=== PATIENT | male | born 1955 | race African-American/Black ===

== ENCOUNTER 2017-06-22 20:01 | Emergency (ER) | payer OTHER ==
--- NOTE | 2017-06-22 21:16 | EDM.PDOC ---
<Sam Pastor E - Last Filed: 06/22/17 22:15> ED HPI GENERAL MEDICAL PROBLEM - General Chief Complaint: Lower Extremity Injury/Pain Stated Complaint: PT HURT RT LEG Time Seen by Provider: 06/22/17 21:05 Source of Information: Reports: Patient History Limitations: Reports: No Limitations - History of Present Illness INITIAL COMMENTS - FREE TEXT/NARRATIVE: HISTORY AND PHYSICAL: History of present illness: Patient is a 61-year-old male who presents to the emergency room with complaints of right ankle pain and he states that his foot got caught on a pipe and rolled his right ankle resulting in a fall. He states that he tried to get up and was in able to bear weight. Patient is fairly confident that his ankle is broken. He is reluctant to allowing staff to removing his shoe at this time. After reassurance and education he is allowing staff to cut the boot of the affected extremity. Denies hitting his head or any loss of consciousness Does not take any prescribed or [id number] medications Has no previous health problems or surgical history. Last ate and drank at 3 PM this afternoon. Review of systems: As per history of present illness and below otherwise all systems reviewed and negative. Past medical history: As per history of present illness and as reviewed below otherwise noncontributory. Surgical history: As per history of present illness and as reviewed below otherwise noncontributory. Social history: No reported history of drug or alcohol abuse. Family history: As per history of present illness and as reviewed below otherwise noncontributory. Physical exam: Gen.: Nontoxic-appearing [id number]-zsu male. Alert and oriented. HEENT: Atraumatic, normocephalic, pupils reactive, negative for conjunctival pallor or scleral icterus, mucous membranes moist, throat clear, neck supple, nontender, trachea midline. Lungs: Clear to auscultation, breath sounds equal bilaterally, chest nontender. Heart: S1S2, regular, negative for clicks, rubs, or JVD. Abdomen: Soft, nondistended, nontender. Negative for masses or hepatosplenomegaly. Negative for costovertebral tenderness. Pelvis: Stable nontender. Genitourinary: Deferred. Rectal: Deferred. Extremities: Swelling noted to the lateral malleolus of the right ankle, CMS intact, capillary refill less than 3 seconds. Flexion and dorsiflexion intact. Is negative for cords or calf pain. Neurovascular unremarkable. Neuro: Awake, alert, oriented. Cranial nerves II through XII unremarkable. Cerebellum unremarkable. Motor and sensory unremarkable throughout. Exam nonfocal. 2199- Dr. Grayson is here to see the patient for a closed reduction. Dr Godfrey assumed care of this patient at this time. Diagnostics: X-ray Therapeutics: IM morphine Impression: Ankle fracture Plan: [] Definitive disposition and diagnosis as appropriate pending reevaluation and review of above. Right Leg Pain Score (Numeric/FACES): 6 - Related Data Allergies Allergy/AdvReac Type Severity Reaction Status Date / Time No Known Allergies Allergy Verified 06/22/17 20:08 Home Meds: Home Meds . [No Known Home Meds] 06/22/17 [History] Past Medical History - Past Health History Medical/Surgical History: Denies Medical/Surgical History Musculoskeletal History: Reports: None - Past Surgical History Musculoskeletal Surgical History: Reports: Shoulder Surgery Social & Family History - Family History Family Medical History: Noncontributory - Tobacco Use Smoking Status *Q: Never Smoker Second Hand Smoke Exposure: No - Caffeine Use Caffeine Use: Reports: Coffee, Energy Drinks, Soda - Recreational Drug Use Recreational Drug Use: No Course - Vital Signs Last Recorded V/S: Last Vital Signs Temp 37.0 C 06/22/17 20:04 Pulse 78 06/22/17 20:04 Resp 19 06/22/17 20:04 BP 137/80 06/22/17 20:04 Pulse Ox 97 06/22/17 20:04 - Orders/Labs/Meds Orders: Active Orders 24 hr Category Date Time Status Ankle Min 3V Rt [CR] Stat Exams 06/22/17 21:14 Taken Ankle Min 3V Rt [CR] Stat Exams 06/22/17 22:52 Ordered Ankle wo Cont Rt [CT] Stat Exams 06/22/17 22:53 Ordered Lactated Ringers [Ringers, Lactated] 1,000 ml Med 06/22/17 22:30 Active IV ASDIRECTED Medication Orders Lactated Ringer's (Ringers, Lactated) 1,000 mls @ 125 mls/hr IV ASDIRECTED ROSIO Last Admin: 06/22/17 22:23 Dose: 125 mls/hr Meds: Medications Generic Name Dose Route Start Last Admin Trade Name Freq PRN Reason Stop Dose Admin Lactated Ringer's 1,000 mls @ 125 mls/hr 06/22/17 22:30 06/22/17 22:23 Ringers, Lactated IV 125 mls/hr ASDIRECTED ROSIO Administration Discontinued Medications Generic Name Dose Route Start Last Admin Trade Name Anton PRN Reason Stop Dose Admin Bupivacaine HCl Confirm 06/22/17 22:04 06/22/17 22:27 Sensorcaine-Mpf 0.5% Administered 06/22/17 22:05 10 ml Dose Administration 10 ml .ROUTE .STK-MED ONE Fentanyl Confirm 06/22/17 22:18 Sublimaze Administered 06/22/17 22:19 Dose 100 mcg .ROUTE .STK-MED ONE Lidocaine Confirm 06/22/17 22:17 Xylocaine-Mpf 2% Administered 06/22/17 22:18 Dose 5 ml .ROUTE .STK-MED ONE Lidocaine HCl Confirm 06/22/17 22:04 06/22/17 22:27 Xylocaine-Mpf 1% Administered 06/22/17 22:05 5 ml Dose Administration 5 ml .ROUTE .STK-MED ONE Morphine Sulfate 4 mg 06/22/17 21:27 06/22/17 21:45 Morphine IM 06/22/17 21:28 4 mg ONETIME ONE Administration Propofol Confirm 06/22/17 22:18 Diprivan 20 Ml Administered 06/22/17 22:19 Dose 400 mg .ROUTE .STK-MED ONE Departure - Departure Disposition: Home, Self-Care 01 Clinical Impression: Fracture subluxation of ankle joint - Discharge Information Referrals: PCP,None [Primary Care Provider] - Forms: ED Department Discharge Additional Instructions: The following information is given to patients seen in the emergency department who are being discharged to home. This information is to outline your options for follow-up care. We provide all patients seen in our emergency department with a follow-up referral. The need for follow-up, as well as the timing and circumstances, are variable depending upon the specifics of your emergency department visit. If you don't have a primary care physician on staff, we will provide you with a referral. We always advise you to contact your personal physician following an emergency department visit to inform them of the circumstance of the visit and for follow-up with them and/or the need for any referrals to a consulting specialist. The emergency department will also refer you to a specialist when appropriate. This referral assures that you have the opportunity for followup care with a specialist. All of these measure are taken in an effort to provide you with optimal care, which includes your followup. Under all circumstances we always encourage you to contact your private physician who remains a resource for coordinating your care. When calling for followup care, please make the office aware that this follow-up is from your recent emergency room visit. If for any reason you are refused follow-up, please contact the [facility] emergency department at and asked to speak to the emergency department charge nurs [facility] Professional Building [address] [place] [address], [address] [place] [address] Follow-up on as discussed for outpatient surgery hydrocodone as prescribed posterior whole crutches as directed return as needed as discussed[] <Justus Godfrey - Last Filed: 06/22/17 22:56> ED HPI GENERAL MEDICAL PROBLEM - History of Present Illness INITIAL COMMENTS - FREE TEXT/NARRATIVE: Orthopedic surgery presented emergency department and with conscious sedation reduced dislocation posterior whole place patient be seen on for outpatient surgery per Orth O patient be discharged with postmold crutches hydrocodone taken as prescribed and follow-up as discussed Review of Systems - Review of Systems Review Of Systems: ROS reveals no pertinent complaints other than HPI. ED EXAM, GENERAL - Physical Exam Exam: See Below (The dictation) Departure - Departure Time of Disposition: 22:56 Condition: Good
[2017-06-22] MEDS ORDERED: Morphine 4 MG/ML Syringe IM ONE (21:27)
[2017-06-22] MEDS ORDERED: Bupivacaine 0.5% 10 ML SDV ONE (22:04)
[2017-06-22] MEDS ORDERED: Lidocaine 2% 5 ML SDV ONE (22:17)
[2017-06-22] MEDS ORDERED: fentaNYL 100 MCG/2 ML SDV ONE (22:18)
[2017-06-22] MEDS ORDERED: Propofol 200 MG/20 ML SDV ONE (22:18)
[2017-06-22] MEDS ORDERED: Lactated Ringers 1,000 ML IV SCH (22:30)
--- NOTE | 2017-06-22 23:02 | PCM.PREANE ---
Preanesthetic Assessment - Anesthesia/Transfusion/Family Hx Anesthesia History: Prior Anesthesia Without Reaction Family History of Anesthesia Reaction: No Transfusion History: No Prior Transfusion(s) - Review of Systems General: No Symptoms Pulmonary: No Symptoms Cardiovascular: No Symptoms Gastrointestinal: No Symptoms Neurological: No Symptoms Other: Reports: None - Physical Assessment NPO Status Date: 06/22/17 NPO Status Time: 15:00 O2 Sat by Pulse Oximetry: 97 Respiratory Rate: 19 Vital Signs: Last Vital Signs Temp 98.6 F 06/22/17 20:04 Pulse 78 06/22/17 20:04 Resp 19 06/22/17 20:04 BP 137/80 06/22/17 20:04 Pulse Ox 97 06/22/17 20:04 Height: 5 ft 6 in Weight: 173 lb ASA Class: 1E Mental Status: Alert & Oriented x3 Airway Class: Mallampati = 2 Dentition: Reports: Normal Dentition Thyro-Mental Finger Breadths: 3 Mouth Opening Finger Breadths: 3 ROM/Head Extension: Full Lungs: Clear to Auscultation, Normal Respiratory Effort Cardiovascular: Regular Rate, Regular Rhythm - Allergies Allergies/Adverse Reactions: Allergies Allergy/AdvReac Type Severity Reaction Status Date / Time No Known Allergies Allergy Verified 06/22/17 20:08 - Blood Blood Available: No Product(s) Available: None - Anesthesia Plan Free Text/Narrative:: MAC for closed reduction of ankle in ED - Acknowledgements Anesthesia Type Planned: MAC Pt an Appropriate Candidate for the Planned Anesthesia: Yes Alternatives and Risks of Anesthesia Discussed w Pt/Guardian: Yes PreAnesthesia Questionnaire - Past Health History Medical/Surgical History: Denies Medical/Surgical History Musculoskeletal History: Reports: None - Past Surgical History GI Surgical History: Reports: Hernia, Inguinal Musculoskeletal Surgical History: Reports: Shoulder Surgery - SUBSTANCE USE Smoking Status *Q: Never Smoker Second Hand Smoke Exposure: No Recreational Drug Use History: No - HOME MEDS Home Medications: Home Meds . [No Known Home Meds] 06/22/17 [History] - CURRENT (IN HOUSE) MEDS Current Meds: Current Medications Lactated Ringer's (Ringers, Lactated) 1,000 mls @ 125 mls/hr IV ASDIRECTED ROSIO Last Admin: 06/22/17 22:23 Dose: 125 mls/hr Discontinued Medications Bupivacaine HCl (Sensorcaine-Mpf 0.5%) Confirm Administered Dose 10 ml .ROUTE .STK-MED ONE Stop: 06/22/17 22:05 Last Admin: 06/22/17 22:27 Dose: 10 ml Fentanyl (Sublimaze) Confirm Administered Dose 100 mcg .ROUTE .STK-MED ONE Stop: 06/22/17 22:19 Lidocaine (Xylocaine-Mpf 2%) Confirm Administered Dose 5 ml .ROUTE .STK-MED ONE Stop: 06/22/17 22:18 Lidocaine HCl (Xylocaine-Mpf 1%) Confirm Administered Dose 5 ml .ROUTE .STK-MED ONE Stop: 06/22/17 22:05 Last Admin: 06/22/17 22:27 Dose: 5 ml Morphine Sulfate (Morphine) 4 mg IM ONETIME ONE Stop: 06/22/17 21:28 Last Admin: 06/22/17 21:45 Dose: 4 mg Propofol (Diprivan 20 Ml) Confirm Administered Dose 400 mg .ROUTE .STK-MED ONE Stop: 06/22/17 22:19
--- NOTE | 2017-06-22 23:03 | PCM48HPAN ---
Post Anesthesia Note - EVALUATION WITHIN 48HRS OF ANESTHETIC Vital Signs in Normal Range: Yes Patient Participated in Evaluation: Yes Respiratory Function Stable: Yes Airway Patent: Yes Cardiovascular Function Stable: Yes Hydration Status Stable: Yes Pain Control Satisfactory: Yes Nausea and Vomiting Control Satisfactory: Yes Mental Status Recovered: Yes - COMMENTS/OBSERVATIONS Free Text/Narrative:: Pt tolerated sedation well and care turned back over to ER staff as pt is awake and alert.
[2017-06-22 23:31] LABS: CHLORIDE,CL 107 mmol/L (98-110); SODIUM,NA 140 mmol/L (136-146)
--- NOTE | 2017-06-23 00:05 | HP ---
DATE OF : 1955 PRIMARY CARE PHYSICIAN: None PCP HISTORY OF PRESENT ILLNESS: The patient is a 61-year-old gentleman for whom I am consulted by the ER physician regarding a right ankle fracture dislocation. The injury was sustained following a slip and fall at approximately 7:30 p.m. He denies additional injuries associated with the event. He denies previous issues with respect to his ankle. PAST MEDICAL HISTORY: Denies though he does not see a physician often. PAST SURGICAL HISTORY: Keloid procedure when he was approximately 19. SOCIAL HISTORY: He does not smoke or use tobacco. He does not drink alcohol. Denies additional drug use. He works in manual labor job. FAMILY HISTORY: Noncontributory. REVIEW OF SYSTEMS: He denies a personal or family history of DVT/PE or bleeding/clotting problems associated with surgery. He has been in his normal state of health recently. PHYSICAL EXAMINATION: GENERAL: Reveals a well-appearing gentleman. He is mildly uncomfortable, but in no acute distress. There is no evidence of trauma involving his bilateral upper or left lower extremity. Involving the right ankle, there is obvious deformity. There is no pain with range of motion of the knee or the hip on the right side. He notes intact sensation to light touch involving the dorsal and plantar aspect of the foot including the first dorsal interspace. He has a palpable dorsalis pedis pulse and brisk capillary refill to the toes. DIAGNOSTIC DATA: Results reviewed. Plain films of the ankle were reviewed. These show a fracture dislocation that appears to be a trimalleolar fracture. The dislocation is posterolateral. I did order postreduction films which showed successful reduction. In addition, I ordered a CT for better evaluation of the fracture fragments. This is pending at the time of this dictation. ASSESSMENT: Right ankle fracture dislocation. PLAN: Closed reduction under sedation was performed in the ER this evening. Please see the procedure note below. He will require definitive surgical fixation. I did order a CT for preoperative planning. Consent for the procedure was obtained today following a thorough discussion of the risks, benefits, expected outcomes, and alternatives. I will plan on surgery in 3 days on . I stressed to the patient the importance of elevation until that time. He will be given some pain medications to take home as per the ER physician. Procedure note: Conscious sedation was provided as per Anesthesia with propofol. Then, using gentle traction in a distal and anterior direction, reduction of the ankle was obtained. A splint was placed with an appropriate mold. The patient tolerated the procedure well. There were no complications. BEKAH MCWILLIAMS /[id number]
--- NOTE | 2017-06-23 10:55 | CR ---
EXAM DATE: 06/22/17 PATIENT'S AGE: 61 Patient: LINDA GABRIEL Facility: [place], [place] Site . Site : 1955 Study: XRay Extremity ankle [id number] 9:58:54 PM Ordering Physician: Doctor Bailey Final Report: INDICATION: Ankle pain TECHNIQUE: Ankle radiograph 3 views right COMPARISON: None FINDINGS: Bones: There is a displaced oblique fracture of the distal fibula with the fracture fragments distracted by 6 mm. A transverse fracture of the medial malleolus is present with the distal fragment displaced laterally by 9 mm. A displaced posterior malleolar fracture is noted. Joint: Lateral and posterior subluxation of the talus is noted with respect to the distal tibia. No significant ankle effusion is seen. Soft tissue: Kager`s fat pad and the Achilles` tendon is normal in appearance. No radiopaque foreign bodies are seen. IMPRESSIONS: 1. Lateral and posterior subluxation of the talus is noted with respect to the distal tibia. 2. Trimalleolar fracture of the right ankle is seen. Dictated by Flo Parrish MD @ 06/22/2017 10:17:14 PM Dictated by: Flo Parrish MD @ 06/22/2017 22:17:21 (Electronic Signature) Report Signed by Proxy. DONNELL
--- NOTE | 2017-06-23 11:02 | CR ---
EXAM DATE: 06/22/17 PATIENT'S AGE: 61 Patient: LINDA GABRIEL Facility: [place], [place] Site . Site : 1955 Study: XRay Extremity ankle [id number] 10:57:00 PM Ordering Physician: Doctor Bailey Final Report: INDICATION: Post reduction TECHNIQUE: Three views right ankle through a cast, 10:37 p.m. COMPARISON: 9:38 p.m. FINDINGS: Bones: Near anatomical alignment of distal fibular, posterior and medial malleoli fractures. Joint spaces: Unremarkable. Soft tissues: Unremarkable. IMPRESSION: Near anatomical alignment of trimalleolar fractures. Anatomical alignment of the ankle joint. Dictated by Raffaele Sánchez MD @ 06/22/2017 10:59:39 PM Dictated by: Raffaele Sánchez MD @ 06/22/2017 22:59:48 (Electronic Signature) Report Signed by Proxy. MTDHaile
--- NOTE | 2017-06-23 11:04 | CT ---
EXAM DATE: 06/22/17 PATIENT'S AGE: 61 Patient: LINDA GABRIEL Facility: [place], [place] Site . Site : 1955 Study: CT Extremity Right Ankle [id number]`-06/22/2017 11:58:32 PM Ordering Physician: Doctor Bailey Final Report: INDICATION: Ankle fracture status post reduction TECHNIQUE: CT right ankle without i.v. contrast. Coronal and sagittal reformats were obtained. COMPARISON: Radiographs today FINDINGS: Bones: A 4 mm bone island is present within the medial cuneiform. There is a comminuted fracture in the posterior malleolus of the tibia producing a gap in the articular surface of 8 mm. The predominant fracture fragment of the posterior malleolus is displaced cephalad with articular incongruity by 5 mm. Small osseous fragments are seen along the posterior aspect of the tibiotalar joint. There is a comminuted spiral fracture in the distal fibula present with the distal fragment displaced posteriorly by 6 mm and distracted by 5 mm. Small osseous fragments are present along the distal tibiofibular joint. There is a nondisplaced transverse fracture in the medial malleolus with small osseous fragments seen in the fracture defect. Joints: No joint effusion is seen. Soft tissues: Moderate subcutaneous edema seen throughout the ankle. No radiopaque foreign bodies seen. There is a splint present surrounding the distal calf and hindfoot. IMPRESSION: 1. Trimalleolar fracture of the right ankle noted as described above. Small osseous fragments are present and interposed between the various fracture sites as described above could 2. The ankle mortise joint has been reduced to near anatomic alignment. Dictated by Flo Parrish MD @ 06/23/2017 12:13:30 AM Dictated by: Flo Parrish MD @ 06/23/2017 00:13:45 (Electronic Signature) Report Signed by Proxy. DONNELL
== END 2017-06-23 00:10 | disposition home or self-care (01) ==
LOC: MW.ED 20:01
DX: S82.851A Displaced trimalleolar fracture of right lower leg, initial encounter for closed fracture (principal); X50.9XXA Other and unspecified overexertion or strenuous movements or postures, initial encounter
CPT/HCPCS: 27818; 36415; 73610; 73700; 80048; 85025; 85610; 96365; 96366; 96372; 99152; 99284; J2270; J7120; 01462; 99283; J2704; J3010

== ENCOUNTER 2017-06-25 06:27 | Day surgery (SDC) | payer OTHER ==
[~2017-06-25 06:27] MED LIST: ceFAZolin 2 GM in Premix Bag 1 BAG IV ONE
[2017-06-25] MEDS ORDERED: Lactated Ringers 1,000 ML IV SCH (06:30)
[2017-06-25] MEDS ORDERED: fentaNYL 250 MCG/5 ML SDV ONE (07:15)
[2017-06-25] MEDS ORDERED: Lidocaine 2% 5 ML SDV ONE (07:15)
[2017-06-25] MEDS ORDERED: Propofol 200 MG/20 ML SDV ONE (07:15)
[2017-06-25] MEDS ORDERED: Midazolam 1 MG/ML 2 ML SDV ONE (07:15)
[2017-06-25] MEDS ORDERED: Ondansetron 4 MG/2 ML SDV ONE (07:15)
--- NOTE | 2017-06-25 07:38 | PCM.PREANE ---
Preanesthetic Assessment - Anesthesia/Transfusion/Family Hx Anesthesia History: Prior Anesthesia Without Reaction Family History of Anesthesia Reaction: No Transfusion History: No Prior Transfusion(s) - Review of Systems General: No Symptoms Pulmonary: No Symptoms Cardiovascular: No Symptoms Gastrointestinal: No Symptoms Neurological: No Symptoms Other: Reports: None - Physical Assessment NPO Status Date: 06/24/17 NPO Status Time: 22:00 O2 Sat by Pulse Oximetry: 97 Respiratory Rate: 18 Vital Signs: Last Vital Signs Temp 37.5 C 06/25/17 06:45 Pulse 72 06/25/17 06:45 Resp 18 06/25/17 06:45 BP 130/82 06/25/17 06:45 Pulse Ox 97 06/25/17 06:45 Height: 1.68 m Weight: 78.471 kg ASA Class: 1 Mental Status: Alert & Oriented x3 Airway Class: Mallampati = 1 Dentition: Reports: Normal Dentition ROM/Head Extension: Full Lungs: Clear to Auscultation, Normal Respiratory Effort Cardiovascular: Regular Rate, Regular Rhythm - Allergies Allergies/Adverse Reactions: Allergies Allergy/AdvReac Type Severity Reaction Status Date / Time No Known Allergies Allergy Verified 06/22/17 20:08 - Anesthesia Plan Pre-Op Medication Ordered: None - Acknowledgements Anesthesia Type Planned: General Anesthesia Pt an Appropriate Candidate for the Planned Anesthesia: Yes Alternatives and Risks of Anesthesia Discussed w Pt/Guardian: Yes Pt/Guardian Understands and Agrees with Anesthesia Plan: Yes PreAnesthesia Questionnaire - Past Health History Medical/Surgical History: Denies Medical/Surgical History Musculoskeletal History: Reports: Other (See Below) Other Musculoskeletal History: current shoulder pain - Past Surgical History GI Surgical History: Reports: Hernia, Inguinal Musculoskeletal Surgical History: Reports: Other (See Below) Other Musculoskeletal Surgeries/Procedures:: hx of keloid removal on shoulder - SUBSTANCE USE Smoking Status *Q: Never Smoker Second Hand Smoke Exposure: No Recreational Drug Use History: No - HOME MEDS Home Medications: Home Meds . [No Known Home Meds] 06/22/17 [History] - CURRENT (IN HOUSE) MEDS Current Meds: Current Medications Lactated Ringer's (Ringers, Lactated) 1,000 mls @ 125 mls/hr IV ASDIRECTED ROSIO Last Admin: 06/25/17 07:04 Dose: 125 mls/hr Discontinued Medications Fentanyl (Sublimaze) Confirm Administered Dose 250 mcg .ROUTE .STK-MED ONE Stop: 06/25/17 07:16 Cefazolin Sodium/Dextrose 2 gm (/ Premix) 50 mls @ 100 mls/hr IV ONCALL ONE Stop: 06/24/17 15:32 Lidocaine (Xylocaine-Mpf 2%) Confirm Administered Dose 5 ml .ROUTE .STK-MED ONE Stop: 06/25/17 07:16 Midazolam HCl (Versed 1 Mg/Ml) Confirm Administered Dose 2 mg .ROUTE .STK-MED ONE Stop: 06/25/17 07:16 Ondansetron HCl (Zofran) Confirm Administered Dose 4 mg .ROUTE .STK-MED ONE Stop: 06/25/17 07:16 Propofol (Diprivan 20 Ml) Confirm Administered Dose 200 mg .ROUTE .STK-MED ONE Stop: 06/25/17 07:16
[2017-06-25] MEDS ORDERED: Bupivacaine 0.5% 30 ML SDV ONE (08:06)
[2017-06-25] MEDS ORDERED: Phenylephrine/Normal Saline 100 MCG/ML 10 ML Syringe ONE (08:33)
[2017-06-25] MEDS ORDERED: Dexamethasone 4 MG/ML 5 ML MDV ONE (08:50)
[2017-06-25] MEDS ORDERED: ceFAZolin 1 GM Vial ONE (09:45)
[2017-06-25] MEDS ORDERED: Ketorolac 30 MG/ML SDV ONE (10:21)
[2017-06-25] MEDS: fentaNYL 100 MCG/2 ML SDV IVPUSH PRN ×2 (10:54→11:05)
--- NOTE | 2017-06-25 11:12 | PCM.POSTAN ---
POST ANESTHESIA ASSESSMENT - MENTAL STATUS Mental Status: Alert, Oriented - RESPIRATORY Respiratory Status: Respiratory Rate WNL, Airway Patent, O2 Saturation Stable - CARDIOVASCULAR CV Status: Pulse Rate WNL, Blood Pressure Stable - GASTROINTESTINAL GI Status: No Symptoms - POST OP HYDRATION Hydration Status: Adequate & Stable
--- NOTE | 2017-06-25 13:17 | PCM48HPAN ---
Post Anesthesia Note - EVALUATION WITHIN 48HRS OF ANESTHETIC Vital Signs in Normal Range: Yes Patient Participated in Evaluation: Yes Respiratory Function Stable: Yes Airway Patent: Yes Cardiovascular Function Stable: Yes Hydration Status Stable: Yes Pain Control Satisfactory: Yes Nausea and Vomiting Control Satisfactory: Yes Mental Status Recovered: Yes
--- NOTE | 2017-06-25 14:44 | OR ---
SURGEON: KEYANNA HALEY MD DATE OF PROCEDURE: 06/25/2017 PREOPERATIVE DIAGNOSIS: Right ankle fracture dislocation. POSTOPERATIVE DIAGNOSIS: Right ankle fracture dislocation. OPERATION PERFORMED: Open reduction and internal fixation of right ankle fracture dislocation. COMPLICATIONS: None. ESTIMATED BLOOD LOSS: 20. TOURNIQUET TIME: 55 minutes at 250 mmHg. INDICATIONS: The patient is a 61-year-old gentleman who sustained a slip and fall approximately 2 days ago. He was seen in the emergency department, where a fracture dislocation of his right ankle was reduced under sedation. We discussed operative intervention. Following a thorough discussion of the risks, benefits, expected outcomes and alternatives, the patient did wish to proceed. DESCRIPTION OF PROCEDURE: I saw the patient in the preoperative holding area. The operative site was marked. He was brought back to the operating room. General anesthesia was administered by the Anesthesia Team. I also injected a total of 20 mL of Marcaine for postoperative analgesia around the ankle. He did receive 2 grams of Ancef preoperatively and an additional 1 gram after deflation of the tourniquet during the case. He was then prepped and draped in the normal sterile fashion. Following a multi-disciplinary time-out, the Esmarch bandage was applied and the tourniquet was inflated to 250 mmHg. I then made a standard lateral approach to the ankle. I used careful dissection proximally to avoid inadvertent injury to the superficial peroneal nerve. The fracture site was identified. Hematoma was evacuated. I thoroughly irrigated the wound and then a reduction maneuver was performed. The reduction was provisionally held with a single lag screw from anterior to posterior. This was done using a standard lag screw technique. I then placed the Fortescue distal fibular locking plate and secured this with one locking screw proximally and distally as well as 2 locking screws proximally and 3 more locking screws distally. Fluoroscopic images were obtained at this time and showed appropriate position of the hardware. Attention was then turned toward the medial side. I made a slightly longer than normal incision in order to try to access the posterior malleolar fracture fragment to some extent. The saphenous vein and nerve were identified and protected in the anterior aspect of the incision. The medial malleoli fracture site was identified, and the periosteal soft tissue was elevated. I booked open the medial malleolar fracture and attempted to access the inner aspect of the posterior malleolar fracture. This was difficult to visualize with any definitive clarity. Based on the preoperative CT, this is a small posterior malleolar fracture that did not require fixation; however, there was a joint fragment that had pushed up blocking the complete reduction. I was able to get a hemostat in and attempted to maneuver this joint fragment down for the posterior malleolar fragment to reduce more completely. It was difficult to visualize this definitively on fluoroscopy, but I think I was able to improve the position somewhat. Then, the medial malleolar fracture was reduced using a clamp. It was secured with two 4-0 cannulated screws, 35 mm in length. There was excellent fixation and appropriate positioning evident on the fluoroscopy views. The wounds were then thoroughly irrigated. Tourniquet was inflated. Hemostasis was obtained. Closure occurred with 0 Vicryl for the deep layer on the lateral side and 2-0 Vicryl with a running nylon, both medially and laterally. A sterile dressing as well as a well-padded splint was applied. The patient was then awoken from anesthesia and transferred to Recovery in a stable condition. Of note, I did check a stress view during the case under fluoroscopy as well. This was done because there was still imperfect reduction of the posterior malleolus. However, the stress view showed absolutely no significant widening of the syndesmosis or opening of the medial side. This was expected given the anatomic fixation of the fibula and medial malleolar fractures. Postoperative plan will include use of the splint. He will follow up in clinic in approximately 10 days with x-rays out of the splint as well as suture removal and transition to a short-leg cast at that time. He is going to be sent home with prescriptions for aspirin, [place], and Colace. If he has any issues at home, he is to follow up sooner. I am going to obtain x-rays in the PACU as well to ensure continued maintenance of appropriate hardware position. BEKAH / OJ /[id number]
--- NOTE | 2017-06-25 15:06 | CR ---
EXAMINATION: Right ankle HISTORY: ORIF COMPARISON: CT dated 06/22/2017 TECHNIQUE: 4 operative control films provided. FINDINGS/IMPRESSION: Screw and plate hardware fixate the distal fibula, 2 screws fixate the medial ma lleolus. There is a nondisplaced posterior malleolus component noted.
--- NOTE | 2017-06-25 15:17 | CR ---
EXAMINATION: Right ankle HISTORY: ORIF COMPARISON: Radiographs from the same day TECHNIQUE: 3 views FINDINGS/IMPRESSION: There is screw and plate fixation of a distal fibular fracture and 2 screws fixa ting the medial malleolus. The posterior malleolus fracture is not well characterized. Overlying cast material is noted.
== END 2017-06-25 13:05 | disposition home or self-care (01) ==
LOC: MW.SDS 06:27
PROVIDERS: ATTEND Orthopaedic Surgery
DX: S82.841A Displaced bimalleolar fracture of right lower leg, initial encounter for closed fracture (principal); W19.XXXA Unspecified fall, initial encounter; Z98.890 Other specified postprocedural states
CPT/HCPCS: 27814; 73610; 76000; C1713; C1769; J0690; J1100; J1885; J2250; J2405; J3010; J7120; 01480; J2704

== ENCOUNTER 2021-12-13 08:34 | Day surgery (SDC) | payer MEDICARE, OTHER ==
[~2021-12-13 08:34] MED LIST changes: +Lactated Ringers 1,000 ML IV SCH; -ceFAZolin 2 GM in Premix Bag 1 BAG IV ONE
[2021-12-13] MEDS ORDERED: Propofol 200 MG/20 ML SDV ONE (10:10)
[2021-12-13] MEDS ORDERED: fentaNYL 100 MCG/2 ML SDV ONE (10:10)
[2021-12-13] MEDS ORDERED: Lidocaine 2% 5 ML SDV ONE (11:40)
== END 2021-12-13 13:11 | disposition home or self-care (01) ==
LOC: MW.SDS 08:34
PROVIDERS: ATTEND Surgery
DX: K29.50 Unspecified chronic gastritis without bleeding (principal); K44.9 Diaphragmatic hernia without obstruction or gangrene; K22.89 Other specified disease of esophagus; K57.30 Diverticulosis of large intestine without perforation or abscess without bleeding; K21.9 Gastro-esophageal reflux disease without esophagitis; I10 Essential (primary) hypertension; Z98.890 Other specified postprocedural states; Z79.899 Other long term (current) drug therapy; Z87.891 Personal history of nicotine dependence
CPT/HCPCS: 43239; 45378; J2704; J3010; J7120; 00811

== ENCOUNTER 2023-06-09 11:23 | Emergency (ER) | payer MEDICARE ==
[2023-06-09 11:50] LABS: APPEARANCE,URINE SLT CLOUDY; BILIRUBIN,URINE NEGATIVE (NEGATIVE); COLOR,URINE YELLOW; GLUCOSE,URINE NEGATIVE (NEGATIVE); KETONES,URINE NEGATIVE (NEGATIVE); LEUKOCYTE ESTERASE,URINE NEGATIVE (NEGATIVE); NITRITE,URINE NEGATIVE (NEGATIVE); OCCULT BLOOD,URINE LARGE (NEGATIVE); PROTEIN,URINE NEGATIVE (NEGATIVE); UROBILINOGEN,URINE 0.2 EU/dL (<2.0)
[2023-06-09] MEDS ORDERED: Sodium Chloride 0.9% 1,000 ML IV ONE (12:01)
[2023-06-09 12:02] LABS: RBC,URINE TOO NUMEROUS TO CT (0-2/HPF); WBC,URINE 0-2 (0-5/HPF)
[2023-06-09 12:03] LABS: BACTERIA,URINE FEW (NEGATIVE); MUCUS,URINE LIGHT (NONE-MOD); SQUAMOUS EPITHELIAL CELLS,UR RARE
[2023-06-09] MEDS ORDERED: Ketorolac 30 MG/ML SDV IVPUSH ONE (12:11)
[2023-06-09 12:24] LABS: BASOPHILS ABSOLUTE AUTO 0.02 K/uL (0.00-0.20); BASOPHILS PERCENT AUTO 0.2 % (0.0-1.0); EOSINOPHILS ABSOLUTE AUTO 0.01 K/uL (0.00-0.45); EOSINOPHILS PERCENT AUTO 0.1 % (0.0-6.0); HEMATOCRIT 42.2 % (42.0-52.0); HEMOGLOBIN 14.3 g/dL (14.0-18.0); IMMATURE GRAN ABSOLUTE AUTO 0.03 K/uL (0.00-0.05); IMMATURE GRAN PERCENT AUTO 0.3 % (0.0-0.4); LYMPHOCYTES ABSOLUTE AUTO 0.83 K/uL (1.00-4.80); LYMPHOCYTES PERCENT AUTO 7.4 % (24.0-44.0); MEAN CORPUSCULAR HEMOGLOBIN 27.8 pg (28.0-32.0); MEAN CORPUSCULAR HGB CONC 33.9 g/dL (32.0-36.0); MEAN CORPUSCULAR VOLUME 81.9 fL (83.0-99.0); MEAN PLATELET VOLUME 9.6 fL (9.4-12.4); MONOCYTES ABSOLUTE AUTO 0.55 K/uL (0.00-0.80); MONOCYTES PERCENT AUTO 4.9 % (0.0-8.0); NEUTROPHILS ABSOLUTE AUTO 9.72 K/uL (1.80-7.70); NEUTROPHILS PERCENT AUTO 87.1 % (41.0-71.0); PLATELET COUNT,PLT 215 K/uL (150-400); RED BLOOD CELL COUNT 5.15 M/uL (4.52-5.90); WHITE BLOOD CELL COUNT,WBC 11.16 K/uL (3.9-11.3)
[2023-06-09 12:56] LABS: BILIRUBIN TOTAL 0.4 mg/dL (0.2-1.0); CARBON DIOXIDE,CO2 26.7 mmol/L (21.0-32.0); CREATININE 1.5 mg/dL (0.8-1.3); EST CRCL DRUG DOSING (CG) 43.71 mL/min; POTASSIUM,K 4.3 mmol/L (3.5-5.1)
[2023-06-09] MEDS ORDERED: Tamsulosin 0.4 MG Cap.ER PO ONE (14:55)
== END 2023-06-09 15:22 | disposition home or self-care (01) ==
LOC: MW.ED 11:23
DX: N13.2 Hydronephrosis with renal and ureteral calculous obstruction (principal); I10 Essential (primary) hypertension
CPT/HCPCS: 36415; 74176; 80053; 81001; 85025; 96361; 96374; 99284; A9270; J1885; J7030

== ENCOUNTER 2023-07-12 19:32 | Emergency (ER) | payer MEDICARE ==
[2023-07-12] MEDS ORDERED: Lidocaine 5% Oint 35.44 GM Tube TOP ONE (19:55)
[2023-07-12] MEDS ORDERED: Bacitracin Oint 28.35 GM Tube TOP ONE (19:55)
[2023-07-12] MEDS ORDERED: Acetaminophen/oxyCODONE 325-5 MG Tab PO ONE (20:06)
[2023-07-12] MEDS ORDERED: Diphtheria,Pertussis(Acell),Tetanus Vaccine 0.5 ML Syringe IM ONE (20:08)
[2023-07-12] MEDS ORDERED: HYDROmorphone 1 MG/ML Syringe IM ONE (20:47)
[2023-07-12] MEDS ORDERED: Ketorolac 30 MG/ML SDV IM ONE (20:52)
== END 2023-07-12 21:46 | disposition home or self-care (01) ==
LOC: MW.ED 19:32
DX: T23.201A Burn of second degree of right hand, unspecified site, initial encounter (principal); I10 Essential (primary) hypertension; Z23 Encounter for immunization; X15.3XXA Contact with hot saucepan or skillet, initial encounter
CPT/HCPCS: 90471; 90715; 96372; 99283; A9270; J1170; J1885